=== PATIENT | male | born 2000 | race Two or more races ===

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

== ENCOUNTER 2021-04-29 17:33 | Emergency (ER) | payer BC ==
[2021-04-29 19:54] VITALS: BP 118/55; PULSE 72
--- NOTE | 2021-04-29 20:48 | EDM.PDOC ---
ED HPI GENERAL MEDICAL PROBLEM - General Chief Complaint: Bite:Animal, Insect Stated Complaint: BUG BITE ON CHIN Time Seen by Provider: 04/29/21 19:50 Source of Information: Reports: Patient History Limitations: Reports: No Limitations - History of Present Illness INITIAL COMMENTS - FREE TEXT/NARRATIVE: Patient is a 20-year-old male who is otherwise healthy presenting with chief complaint of swelling to the chin area. Patient states his swelling started this morning when he woke up. It gradually increased throughout the day. He does have some pain to the area. Denies any fevers or other systemic symptoms. Has been using warm compresses with little relief. States he had a little bit of greenish discharge from the area earlier. Face/Facial Pain Score (Numeric/FACES): 10 - Related Data Allergies Allergy/AdvReac Type Severity Reaction Status Date / Time cephalexin Allergy Hives Verified 04/29/21 19:48 guaifenesin [From Mucinex] Allergy Hives Verified 04/29/21 19:48 Home Meds: Home Meds Amoxicillin/Clavulanate K [Augmentin 875-125 MG] 1 tab PO BID #20 tablet 04/29/21 [Rx] Sulfamethoxazole/Trimethoprim [Bactrim Ds Tablet] 1 each PO BID #20 tablet 04/29/21 [Rx] Past Medical History - Past Health History Medical/Surgical History: Denies Medical/Surgical History Musculoskeletal History: Reports: Fracture - Past Surgical History GI Surgical History: Reports: Appendectomy Social & Family History - Family History Family Medical History: No Pertinent Family History - Tobacco Use Tobacco Use Status *Q: Never Tobacco User Second Hand Smoke Exposure: No - Caffeine Use Caffeine Use: Reports: Energy Drinks, Soda - Recreational Drug Use Recreational Drug Use: No - Living Situation & Occupation Living situation: Reports: with Family Occupation: Student ED ROS GENERAL - Review of Systems Review Of Systems: Comprehensive ROS is negative, except as noted in HPI. ED EXAM, ANIMAL BITE - Physical Exam Exam: See Below Text/Narrative:: I have reviewed the triage vital signs Const: Well nourished, well developed, appears stated age Eyes: Pupils Equal and reactive to light bilaterally, no conjunctival injection HENT: Chin area demonstrates area of swelling with no significant fluctuance. There is no surrounding erythema. It is tender to the touch. No signs of trauma or swelling, Neck supple without meningismus. Intraoral exam was unremarkable. No dental tenderness. CV: Regular Rate Rhythm, Warm, well-perfused extremities RESP: Unlabored respiratory effort MSK: No gross deformities appreciated Skin: Warm, dry. No rashes Neuro: Alert, briquetter operator II-XII grossly intact. Sensation and motor function of extremities grossly intact. Psych: Appropriate mood and affect. Bedside ultrasound performed did not demonstrate any discrete fluid collection. ED ANIMAL BITE PROCEDURES - I&D Skin Prep: Chlorhexidine (Hibiciens) Area Incised With: Needle Drainage: No Drainage Probed to Break Up Loculations: No Sterile Dressing: Other (Band-Aid) Progress/Comments: Attempts were made to aspirate from the area but no pus or otherwise fluid was expressed. Course - Vital Signs Last Recorded V/S: Last Vital Signs Temp 36.2 C 04/29/21 19:45 Pulse 72 04/29/21 19:45 Resp 16 04/29/21 19:45 BP 118/55 L 04/29/21 19:45 Pulse Ox 100 04/29/21 19:45 Departure - Departure Time of Disposition: 20:48 Disposition: Home, Self-Care 01 Clinical Impression: Cutaneous abscess of face - Discharge Information Prescriptions: Amoxicillin/Clavulanate K [Augmentin 875-125 MG] 1 tab PO BID #20 tablet Sulfamethoxazole/Trimethoprim [Bactrim Ds Tablet] 1 each PO BID #20 tablet Instructions: Animal Bite, Adult, [id number] Referrals: Mahogany Mondragon PA-C [Primary Care Provider] - Forms: ED Department Discharge Additional Instructions: Take antibiotics as directed. I do recommend follow-up in 48 hours with primary care or walk-in clinic for repeat evaluation to determine if you need additional drainage of this area. Sepsis Event Note (ED) - Evaluation Sepsis Screening Result: No Definite Risk - Focused Exam Vital Signs: Vital Signs Temp Pulse Resp BP Pulse Ox 04/29/21 19:45 36.2 C 72 16 118/55 L 100 - Assessment/Plan Assessment:: Patient is a 20-year-old male presenting with what appears to be an early abscess. Aspiration and ultrasound showed no significant areas of fluid collection at this time. Patient will be initiated on antibiotics. I did recommend follow-up in 48 hours for repeat examination. It is possible this is occur early in the course of his infection. No evidence of intraoral infection. No evidence of Balwinder angina. Patient will be discharged with outpatient follow-up. All questions were addressed and answered. Patient agrees with plan of care.
== END 2021-04-29 20:52 | disposition home or self-care (01) ==
LOC: JD.ED 17:33
DX: L02.01 Cutaneous abscess of face (principal); Z88.1 Allergy status to other antibiotic agents; Z88.8 Allergy status to other drugs, medicaments and biological substances
CPT/HCPCS: 99283

== ENCOUNTER 2021-05-03 11:31 | Emergency (ER) | payer BC ==
[2021-05-03 11:59] VITALS: BP 140/76; PULSE 95
[2021-05-03] MEDS ORDERED: Lidocaine/EPINEPHrine/Tetracaine Soln 1 ML TOP ONE (12:16)
[2021-05-03] MEDS ORDERED: Lidocaine 1% 10 ML MDV INJECT ONE (13:00)
--- NOTE | 2021-05-03 13:43 | EDM.PDOC ---
ED HPI GENERAL MEDICAL PROBLEM - General Chief Complaint: Wound Recheck Stated Complaint: CHIN LAC Time Seen by Provider: 05/03/21 11:41 Source of Information: Reports: Patient, Family, RN Notes Reviewed History Limitations: Reports: No Limitations - History of Present Illness INITIAL COMMENTS - FREE TEXT/NARRATIVE: Patient is a 20-year-old male presenting to the emergency department with his father with complaints of abscess on his chin. He was seen in this emergency department 4 days ago for the same complaint. That time they tried to aspirate fluid and were unsuccessful. He was prescribed Bactrim and Augmentin, however he states he was not able to pick it up, therefore he was not taking it. He followed up in the clinic 2 days ago and was prescribed these medications and has been taking them since that time. He is not seeing any improvement in the infection. States that he has been trying to drain it at home. He states has been squeezing it and today he opened it with a "sterile needle ". States when he was taking the needle out he drug along the surface, causing a laceration. He reports he got quite a bit of purulent drainage out of the abscess. Denies any fever or chills. He has had no vomiting. Reports difficulty sleeping due to pain. Treatments LOAD BLOCKER: Reports: Heat Therapy Face/Facial Pain Score (Numeric/FACES): 8 - Related Data Allergies Allergy/AdvReac Type Severity Reaction Status Date / Time cephalexin Allergy Hives Verified 04/29/21 19:48 guaifenesin [From Mucinex] Allergy Hives Verified 04/29/21 19:48 Home Meds: Home Meds Amoxicillin/Clavulanate K [Augmentin 875-125 MG] 1 tab PO BID #20 tablet [Rx] Sulfamethoxazole/Trimethoprim [Bactrim Ds Tablet] 1 each PO BID #20 tablet 04/29/21 [Rx] Hydrocodone/Acetaminophen [Hydrocodone-Acetamin 5-325 mg] 1 each PO Q4H PRN #4 tablet 05/03/21 [Rx] Past Medical History - Past Health History Medical/Surgical History: Denies Medical/Surgical History Musculoskeletal History: Reports: Fracture Dermatologic History: Reports: Cellulitis - Past Surgical History GI Surgical History: Reports: Appendectomy Social & Family History - Family History Family Medical History: No Pertinent Family History - Tobacco Use Tobacco Use Status *Q: Never Tobacco User Second Hand Smoke Exposure: No - Caffeine Use Caffeine Use: Reports: Energy Drinks, Soda - Recreational Drug Use Recreational Drug Use: No - Living Situation & Occupation Living situation: Reports: with Family Occupation: Student ED ROS GENERAL - Review of Systems Review Of Systems: Comprehensive ROS is negative, except as noted in HPI. ED EXAM, SKIN/RASH Exam: See Below Exam Limited By: No Limitations General Appearance: Alert, Anxious Respiratory/Chest: No Respiratory Distress, Lungs Clear, Normal Breath Sounds, No Accessory Muscle Use, Chest Non-Tender Cardiovascular: Normal Peripheral Pulses, Regular Rate, Rhythm, No Edema, No Gallop, No JVD, No Murmur, No Rub Neurological: Alert, Oriented, Normal Cognition, Normal Gait, No Motor/Sensory Deficits Skin: Other (3 cm x 3 cm area of redness swelling, and induration to the mid chin. There is a an approximate 1 cm laceration overlying the area with s erosanguineous fluid draining.) Lymphatic: Adenopathy (Left submental lymphadenopathy.) ED SKIN PROCEDURES - I&D Local Anesthetic Volume: 3cc Course - Vital Signs Last Recorded V/S: Last Vital Signs Temp 98.3 F 05/03/21 11:54 Pulse 95 05/03/21 11:54 Resp 20 05/03/21 11:54 BP 140/76 05/03/21 11:54 Pulse Ox 97 05/03/21 11:54 - Orders/Labs/Meds Meds: Medications Discontinued Medications Generic Name Dose Route Start Last Admin Trade Name Rosemary PRN Reason Stop Dose Admin Ketorolac Tromethamine 60 mg 05/03/21 13:45 05/03/21 13:52 Ketorolac 60 Mg/2 Ml Sdv IM 05/03/21 13:46 60 mg ONETIME ONE Administration Lidocaine HCl 10 ml 05/03/21 13:00 05/03/21 13:29 Lidocaine 1% 10 Ml Mdv INJECT 05/03/21 13:01 10 ml ONETIME ONE Administration Lidocaine/Tetracaine 2 ml 05/03/21 12:16 05/03/21 12:30 Lidocaine/Epinephrine/Tetracaine Soln 1 Ml TOP 05/03/21 12:17 2 ml ONETIME ONE Administration - Re-Assessments/Exams Free Text/Narrative Re-Assessment/Exam: Patient is a 20-year-old male presenting to the emergency department with his father with complaints of abscess on his chin. Been present for approximately 5 days. He was seen here 4 days ago and prescribed antibiotics, however he was unable to get them out of the [employer] machine. He followed up in the clinic with Clarisa Blunt 2 days ago and was placed on Augmentin and Bactrim. He is taking that since this time he is a total of 5 doses of these medications. Denies any fever, chills, nausea, or vomiting. He has been attempting to drain the abscess on his own. Reports today he was squeezing it and opened it with a "sterile needle" and got quite a bit of purulent drainage out of it. On exam, there is approximate 1 cm laceration overlying area of induration. Area is draining serosanguineous fluid at this time. Bedside ultrasound did show a small pocket of fluid on the left lateral side of the abscess. I will order topical let and plan to further drain the abcess. 05/03/21 13:43 1 cm opening was present in the abcess on arrival to ER; therefore, no surgical incision was required. Through this opening, I probed the abscess with forceps to break up loculations. Moderate amount of purulent drainage was obtained from a loculation on the left lateral side of the abscess. Small amount of iodoform gauze was inserted to allow for ongoing drainage. Area covered with Band-Aid. Patient tolerated well. Patient has an allergy to cephalexin, therefore IM Rocephin is contraindicated. He is 48 hours into his antibiotic therapy, therefore he should begin to see improvement in his infection within the next few days. Discussed with him that if he does not see improvement within 48-72 hours or develops fever, chills, nausea, or vomiting. He should return. I will give him an injection of Toradol for pain and send a few tabs of hydrocodone with Tylenol. He verbalized understanding of this plan is in agreement. Discharge instructions as documented. Departure - Departure Time of Disposition: 13:49 Disposition: Home, Self-Care 01 Condition: Good Clinical Impression: Cutaneous abscess of face - Discharge Information *PRESCRIPTION DRUG MONITORING PROGRAM REVIEWED*: No *COPY OF PRESCRIPTION DRUG MONITORING REPORT IN PATIENT MOUNA: No Prescriptions: Hydrocodone/Acetaminophen [Hydrocodone-Acetamin 5-325 mg] 1 each PO Q4H PRN #4 tablet PRN Reason: Pain Instructions: Incision and Drainage, Care After Referrals: Mahogany Mondragon PA-C [Primary Care Provider] - Forms: ED Department Discharge Additional Instructions: Continue taking the Augmentin and Bactrim as prescribed. Avoid touching the area as it will further aggravate the inflammation and increased risk of worsening infection due to introducing bacteria. You may remove the packing gauze in 48 hours. Use [id number] Tylenol and ibuprofen as needed for pain. Do not take a dose of ibuprofen until 8 PM this evening. For pain not relieved by this, a short prescription of hydrocodone with Tylenol has been provided. Take this only as prescribed. Do not work or drive for 12 hours after taking this as it can be sedating. If you not see improvement within the next 48 to 72 hours or you experience any worsening symptoms including fever chills, you should be reevaluated either in the clinic or the emergency department. Sepsis Event Note (ED) - Evaluation Sepsis Screening Result: No Definite Risk - Focused Exam Vital Signs: Vital Signs Temp Pulse Resp BP Pulse Ox 05/03/21 11:54 98.3 F 95 20 140/76 97
[2021-05-03] MEDS ORDERED: Ketorolac 60 MG/2 ML SDV IM ONE (13:45)
== END 2021-05-03 13:10 | disposition home or self-care (01) ==
LOC: JD.ED 11:31
DX: L02.01 Cutaneous abscess of face (principal); Z88.1 Allergy status to other antibiotic agents; Z88.8 Allergy status to other drugs, medicaments and biological substances
CPT/HCPCS: 96372; 99283; J1885

== ENCOUNTER 2024-10-07 07:20 | Emergency (ER) | payer BC ==
[2024-10-07] MEDS: HYDROmorphone 1 MG/ML Syringe IM ONE (08:08)
[2024-10-07 09:25] VITALS: BP 137/71; PULSE 92
== END 2024-10-07 08:52 ==
LOC: JD.ED 07:20
DX: J95.830 Postprocedural hemorrhage of a respiratory system organ or structure following a respiratory system procedure (principal); Z88.1 Allergy status to other antibiotic agents; Z88.8 Allergy status to other drugs, medicaments and biological substances; Z79.899 Other long term (current) drug therapy; Z86.16 Personal history of COVID-19
CPT/HCPCS: 96372; 99284; J1171; 99285